=== PATIENT | male | born 1980 | race Hispanic/Latino ===

== ENCOUNTER 2023-06-13 22:41 | Emergency (ER) | payer OTHER ==
[2023-06-14 01:44] LABS: Absolute Basophils 0.1 K/uL (0-0.5); Absolute Lymphocytes (CBC) 2.1 K/uL (0.7-4.9); Absolute Monocytes 0.7 K/uL (0.1-1.3); Absolute Neutrophil 5.8 K/uL (1.8-8.0); Basophils % 0.6 % (0-1.3); Eosinophils % 0.6 % (0-4.4); Hematocrit 44.7 % (39.6-49.0); Hemoglobin 15.3 g/dL (13.6-17.9); Lymphocytes % 23.7 % (15.3-44.8); MCH 31.5 pg (27.0-35.0); MCHC 34.3 g/dL (32.0-36.0); MCV 91.8 fL (80-100); MPV 7.9 fL (7.6-11.3); Monocytes % 8.5 % (3.3-12.3); Neutrophils % 66.6 % (41.7-73.7); Platelets 274 thou/uL (152-406); RBC Red Blood Cell Count 4.87 M/uL (4.33-5.43); Red Cell Distribution Width 13.6 % (12.1-15.2)
[2023-06-14 01:45] LABS: Specific Gravity 1.015 (1.005-1.030); Sqamous Epithelial None Seen /HPF (None Seen); Urine Bacteria None Seen /HPF (<20); Urine Bilirubin NEGATIVE (Negative); Urine Blood Trace (Negative); Urine Clarity Clear (Clear); Urine Color Colorless (Yellow); Urine Culture Reflex Order NOT NEEDED; Urine Glucose NEGATIVE (Negative); Urine Ketones NEGATIVE (Negative); Urine Microscopic Reflex YN ORDER UMIC; Urine Nitrite NEGATIVE (Negative); Urine Protein NEGATIVE (Negative); Urine RBC <5 /HPF (None Seen); Urine Urobilinogen Normal (Normal); Urine WBC <5 /HPF (<5)
[2023-06-14] MEDS ORDERED: NA CHLORIDE 0.9% 1,000 ML ONE (01:50)
[2023-06-14 02:01] LABS: Albumin 3.8 g/dL (3.4-5.0); Albumin/Globulin Ratio 0.8 (1.1-1.8); Anion Gap 9.5 mEq/L (5.0-15.0); Bilirubin Direct 0.1 mg/dL (0-0.2); Bilirubin Indirect, Calculated 0.3 mg/dL (0.2-0.8); Bilirubin Total 0.4 mg/dL (0.2-1.0); Globulin 4.7 g/dL (2.3-3.5); Potassium 3.5 mEq/L (3.5-5.1); Protein, Total 8.5 g/dL (6.4-8.2); Troponin High Sensitivity 4.9 pg/mL (<58.9)
--- NOTE | 2023-06-14 03:40 | ER ---
Nurse's Notes [facility] Name: Abilio Leslie Age: 43 yrs Sex: Male : 1980 Arrival Date: 06/13/2023 Time: 22:41 Bed 20 Private MD: Diagnosis: Syncope Near Presentation: 06/12 23:07 Chief complaint: Patient states: Pt states he was sweating a lot today and was unable tl4 to stay hydrated. Pt states he had an episode of dizziness and diaphoresis while driving. Pt now states he feels very tired and c/o bilateral calf pain. Coronavirus screen: At this time, the client does not indicate any symptoms associated with coronavirus-19. Ebola Screen: No symptoms or risks identified at this time. Initial Sepsis Screen: Does the patient meet any 2 criteria? No. Patient's initial sepsis screen is negative. Does the patient have a suspected source of infection? No. Patient's initial sepsis screen is negative. Risk Assessment: Do you want to hurt yourself or someone else? Patient reports no desire to harm self or others. Onset of symptoms was June 13, 2023 at 21:00. 23:07 Method Of Arrival: Ambulatory tl4 23:07 Acuity: REGGIE 3 tl4 Triage Assessment: 23:19 General: Appears in no apparent distress. Behavior is calm, cooperative. Pain: tl4 Complains of pain in right leg and left leg. EENT: No deficits noted. No signs and/or symptoms were reported regarding the EENT system. Neuro: Level of Consciousness is awake, alert, obeys commands, Oriented to person, place, time, situation, Gait is steady, Speech is normal, Facial symmetry appears normal. Neuro: Reports dizziness. Cardiovascular: Reports diaphoresis, Denies chest pain, palpitations, syncope. Respiratory: Airway is patent Respiratory effort is even, unlabored, Respiratory pattern is regular, symmetrical. GI: No deficits noted. No signs and/or symptoms were reported involving the gastrointestinal system. : No deficits noted. No signs and/or symptoms were reported regarding the genitourinary system. Derm: No deficits noted. No signs and/or symptoms reported regarding the dermatologic system. Musculoskeletal: No deficits noted. No signs and/or symptoms reported regarding the musculoskeletal system. Historical: - Allergies: 23:15 No Known Allergies; tl4 - PMHx: 23:15 Irritable bowel syndrome; pulmonary embolism; tl4 - PSHx: 23:15 ankle surgery; tl4 - Immunization history:: Adult Immunizations unknown. - Social history:: Smoking status: Patient denies any tobacco usage or history of. Screenin:50 [facility] ED Fall Risk Assessment (Adult) History of falling in the last 3 months, tl4 including since admission No falls in past 3 months (0 pts) Confusion or Disorientation No (0 pts) Intoxicated or Sedated No (0 pts) Impaired Gait No (0 pts) Mobility Assist Device Used No (0 pt) Altered Elimination No (0 pt) Score/Fall Risk Level 0 - 2 = Low Risk Oriented to surroundings, Maintained a safe environment, Educated pt \T\ family on fall prevention, incl call for assistance when getting out of bed, Assessed \T\ reinforced patient's understanding of fall precautions, Hourly rounding (assess needs \T\ fall precautionary measures) done, Used ambulatory aids as needed (educated on \T\ assisted with), Used gait belt as appropriate. Abuse screen: Denies threats or abuse. Denies injuries from another. Nutritional screening: No deficits noted. Tuberculosis screening: No symptoms or risk factors identified. Assessment: 23:49 Reassessment: No changes from previously documented assessment. Patient and/or family tl4 updated on plan of care and expected duration. Pain level reassessed. Patient is alert, oriented x 3, equal unlabored respirations, skin warm/dry/pink. 06/13 01:17 General: Appears in no apparent distress. comfortable, well groomed, well developed, pf1 Behavior is calm, cooperative, appropriate for age, quiet. 01:17 Pain: Denies pain. Neuro: Level of Consciousness is awake, alert, obeys commands, pf1 Oriented to person, place, time, situation, Reports dizziness, since yesterday while at work and feeling dehydrated. Cardiovascular: Capillary refill < 3 seconds Patient's skin is warm and dry. Respiratory: No deficits noted. Airway is patent Respiratory effort is even, unlabored, Respiratory pattern is regular, symmetrical, Breath sounds are clear bilaterally. GI: No deficits noted. No signs and/or symptoms were reported involving the gastrointestinal system. Abdomen is round non-distended. : No deficits noted. No signs and/or symptoms were reported regarding the genitourinary system. EENT: No deficits noted. No signs and/or symptoms were reported regarding the EENT system. Derm: No deficits noted. No signs and/or symptoms reported regarding the dermatologic system. Musculoskeletal: No deficits noted. No signs and/or symptoms reported regarding the musculoskeletal system. 02:00 Reassessment: Patient appears in no apparent distress at this time. Patient and/or pf1 family updated on plan of care and expected duration. Pain level reassessed. Patient is alert, oriented x 3, equal unlabored respirations, skin warm/dry/pink. Patient states feeling better. Patient states symptoms have improved. 03:00 Reassessment: Patient appears in no apparent distress at this time. Patient and/or pf1 family updated on plan of care and expected duration. Pain level reassessed. Patient is alert, oriented x 3, equal unlabored respirations, skin warm/dry/pink. Patient states feeling better. Patient states symptoms have improved. Vital Signs: 06/12 23:07 BP 139 / 74; Pulse 73; Resp 18; Temp 98(TE); Pulse Ox 100% on R/A; Weight 110.22 kg; tl4 Height 5 ft. 7 in. ; Pain 5/10; 06/13 01:30 BP 117 / 63; Pulse 64; Resp 18; Pulse Ox 98% on R/A; Pain 0/10; pf1 02:30 BP 111 / 63; Pulse 62; Resp 15; Pulse Ox 95% on R/A; Pain 2/10; pf1 03:30 BP 113 / 69; Pulse 72; Resp 18; Pulse Ox 99% on R/A; Pain 0/10; pf1 06/12 23:07 Body Mass Index 38.06 (110.22 kg, 170.18 cm) tl4 06/12 23:07 Pain Scale: Adult tl4 06/13 01:30 Pain Scale: Adult pf1 02:30 Pain Scale: Adult pf1 03:30 Pain Scale: Adult pf1 ED Course: 06/12 22:45 Patient arrived in ED. hb 22:48 Efe Humphreys MD is Attending Physician. sp4 23:15 Triage completed. tl4 23:23 Arm band placed on right wrist. tl4 23:50 Patient has correct armband on for positive identification. Placed in gown. Bed in low tl4 position. Call light in reach. Side rails up X 1. Adult w/ patient. Provided Education on: ed process. Door closed. Noise minimized. Moved to private room. Warm blanket given. 23:50 No provider procedures requiring assistance completed. tl4 0316 01:00 Door closed. Noise minimized. Warm blanket given. pf1 01:20 Inserted saline lock: 22 gauge in right antecubital area, using aseptic technique. pf1 Blood collected. 01:20 Initial lab(s) drawn, by me, sent to lab. pf1 01:29 EKG done, by ED staff. pf1 01:31 Urinalysis w/ reflexes Sent. pf1 01:31 Basic Metabolic Panel Sent. pf1 01:31 CBC with Diff Sent. pf1 01:31 Troponin HS Sent. pf1 01:36 CPK Sent. pf1 01:44 XRAY Chest (1 view) In Process Unspecified. EDMS 03:55 IV discontinued, intact, bleeding controlled, No redness/swelling at site. Pressure pf1 dressing applied. Administered Medications: 01:55 Drug: NS 0.9% IV 1000 ml IV at 1 bolus Per protocol; 1000 mL bolus Route: IV; Rate: 1 pf1 bolus; Site: right antecubital; 02:55 Follow up: Response: No adverse reaction; Marked relief of symptoms; IV Status: pf1 Completed infusion; IV Intake: 1000ml 03:02 Follow up: IV Status: Completed infusion; IV Intake: 1000ml pf1 Medication: 06/12 23:49 VIS not applicable for this client. tl4 Intake: 03 02:55 IV: 1000ml; Total: 1000ml. pf1 03:02 IV: 1000ml; Total: 2000ml. pf1 Outcome: 03:39 Discharge ordered by . sp4 03:55 Discharged to home ambulatory, with family, pf1 03:55 Condition: improved 03:55 Discharge instructions given to patient, family, Instructed on discharge instructions, follow up and referral plans. Demonstrated understanding of instructions, follow-up care, 03:55 Patient left the ED. pf1 Signatures: Dispatcher [employer] EDUT Phylicia Gonzalez RN RN hb Finley, Pamala, RN RN pf1 Efe Humphreys MD MD sp4 LogdaJakob RN RN tl4 Corrections: (The following items were deleted from the chart) 01:41 01:36 HEPATIC FUNCTION+C.LAB.BRZ drawn and sent. pf1 EDMS
--- NOTE | 2023-06-14 03:40 | EDPHYS ---
Physician Documentation [facility] Name: Abilio Leslie Age: 43 yrs Sex: Male : 1980 Arrival Date: 06/13/2023 Time: 22:41 Bed 20 Private MD: ED Physician Efe Humphreys HPI: 06/12 22:48 This 43 yrs old Male presents to ER via Unassigned with complaints of sp4 dehydration,lightheadness, Leg Pain. Historical: - Allergies: 23:15 No Known Allergies; tl4 - PMHx: 23:15 Irritable bowel syndrome; pulmonary embolism; tl4 - PSHx: 23:15 ankle surgery; tl4 - Immunization history:: Adult Immunizations unknown. - Social history:: Smoking status: Patient denies any tobacco usage or history of. Vital Signs: 23:07 BP 139 / 74; Pulse 73; Resp 18; Temp 98(TE); Pulse Ox 100% on R/A; Weight 110.22 kg; tl4 Height 5 ft. 7 in. ; Pain 5/10; 06/13 01:30 BP 117 / 63; Pulse 64; Resp 18; Pulse Ox 98% on R/A; Pain 0/10; pf1 02:30 BP 111 / 63; Pulse 62; Resp 15; Pulse Ox 95% on R/A; Pain 2/10; pf1 03:30 BP 113 / 69; Pulse 72; Resp 18; Pulse Ox 99% on R/A; Pain 0/10; pf1 06/12 23:07 Body Mass Index 38.06 (110.22 kg, 170.18 cm) tl4 06/12 23:07 Pain Scale: Adult tl4 06/13 01:30 Pain Scale: Adult pf1 02:30 Pain Scale: Adult pf1 03:30 Pain Scale: Adult pf1 MDM: 06/12 22:49 Patient medically screened. sp4 06/13 01:09 Order name: Basic Metabolic Panel; Complete Time: 03:33 cm10 06/13 01:09 Order name: CBC with Diff; Complete Time: 03:33 cm10 06/13 01:09 Order name: Troponin HS; Complete Time: 03:33 cm10 06/13 01:09 Order name: CPK; Complete Time: 03:33 cm10 03/16 01:09 Order name: Urinalysis w/ reflexes; Complete Time: 03:33 cm10 06/13 01:41 Order name: Liver (Hepatic) Function; Complete Time: 03:33 EDMS 06/13 01:09 Order name: XRAY Chest (1 view) cm10 06/13 01:09 Order name: EKG; Complete Time: 01:10 cm10 06/13 01:09 Order name: Cardiac monitoring; Complete Time: 01:31 cm10 06/13 01:09 Order name: EKG - Nurse/Tech; Complete Time: 01:48 cm10 06/13 01:09 Order name: IV Saline Lock; Complete Time: 01:32 cm10 06/13 01:09 Order name: Labs collected and sent; Complete Time: 01:31 cm10 06/13 01:09 Order name: O2 Per Protocol; Complete Time: 01:31 cm10 06/13 01:09 Order name: O2 Sat Monitoring; Complete Time: 01:31 cm10 Administered Medications: 06/13 01:55 Drug: NS 0.9% IV 1000 ml IV at 1 bolus Per protocol; 1000 mL bolus Route: IV; Rate: 1 pf1 bolus; Site: right antecubital; 02:55 Follow up: Response: No adverse reaction; Marked relief of symptoms; IV Status: pf1 Completed infusion; IV Intake: 1000ml 03:02 Follow up: IV Status: Completed infusion; IV Intake: 1000ml pf1 Disposition Summary: 06/14/23 03:39 Discharge Ordered Problem: new sp4 Symptoms: have improved sp4 Condition: Stable sp4 Diagnosis - Syncope Near sp4 Followup: sp4 - With: Private Physician - When: 7 - 10 days - Reason: Recheck today's complaints Discharge Instructions: - Discharge Summary Sheet sp4 - Near-Syncope sp4 Forms: - Patient Portal Instructions sp4 Addendum: 06/15/2023 04:50 Addendum: EKG at 0 129 06/14/2023 reveals normal sinus rhythm at rate of 67 otherwise s p4 no ST elevation or depression, no ectopy, normal intervals, overall normal EKG. Signatures: Dispatcher [employer] Nancie Alejandro RN RN pf1 Efe Humphreys MD MD sp4 Anna Key RN RN cm10 Jakob Wayne RN RN tl4 Corrections: (The following items were deleted from the chart) 06/13 01:41 01:32 HEPATIC FUNCTION+C.[email or web address].ROSA ordered. EDMS EDMS
[2023-06-14 04:15] VITALS: BP 111/63; TEMP 98; O2SAT 95
--- NOTE | 2023-06-14 18:24 | RAD REPORT ---
EXAM DESCRIPTION: XR Chest 1 View AP CLINICAL HISTORY: Dizziness COMPARISON: None. TECHNIQUE: Chest 1 View AP FINDINGS: Trachea midline. Heart size and pulmonary vessels within normal limits. Lungs clear without evidence of consolidation, mass, or significant pulmonary edema. No significant pleural effusion or pneumothorax. Left clavicle midshaft shows mild expansile deformity and angularity. This likely represents old healed fracture. IMPRESSION: Unremarkable chest radiograph. Electronically signed by: Sharad Torres MD 06/14/2023 03:54 AM CDT Due to temporary technical issues with the PACS/Fluency reporting system, reports are being signed by the in house radiologists without review as a courtesy to insure prompt reporting. The interpreting radiologist is fully responsible for the content of the report.
--- NOTE | 2023-06-15 15:30 | EKG ---
Test Date: 2023-06-14 Test Time: 01:29:24 Electrical Assembler: PRERNA MEASUREMENT RESULTS: Intervals: Rate: 67 HI: 154 QRSD: 94 QT: 406 QTc: 429 [place]: P: -3 HI: 154 QRS: 6 T: 3 INTERPRETIVE STATEMENTS: Normal sinus rhythm Inferior infarct, age undetermined Abnormal ECG No previous ECG available for comparison Electronically Signed On 06-15-23 15:29:45 CDT by Yusuf Wolff
== END 2023-06-14 03:55 | disposition home or self-care (01) ==
LOC: ER 22:41
DX: R55 Syncope and collapse (principal); K58.9 Irritable bowel syndrome, unspecified; Z86.711 Personal history of pulmonary embolism
CPT/HCPCS: 71045; 93005; 96360; 99284